=== PATIENT | female | born 1970 ===

== ENCOUNTER 2018-07-30 07:22 | Emergency (ER) | payer OTHER ==
[2018-07-30 07:36] VITALS: RESP 18; TEMP 98.7; O2SAT 99
[2018-07-30 08:58] VITALS: PULSE 110
--- NOTE | 2018-07-30 08:58 | ED PDOC ---
HPI: Psych/Substance Abuse Time Seen by Provider: 07/30/18 07:35 Chief Complaint (Nursing): Shortness Of Breath Chief Complaint (Provider): Anxiety History Per: Patient History/Exam Limitations: no limitations Onset/Duration Of Symptoms: Hrs (6:30am ) Current Symptoms Are (Timing): Better Associated Symptoms: denies: Suicidal Thoughts, Suicidal Plan Additional Complaint(s): 48 year old insulin-dependent diabetic female presents to the ED for an evaluation of anxiety attack. Patient reports she could not sleep at 4 am and when she was driving to work, she began to have a panic attack at 6:30am with shortness of breath. Patient pulled over when driving and was brought to the ED. Patient was seen at Urgent Care 2 weeks ago and diagnosed with anxiety and she is currently in the process of scheduling an appointment with a psychotherapist. Patient does not take any medication for anxiety and she denies SI/HI. Patient feels better in the ED. pt has no PE risk factors. PMD: Dr. Torres Past Medical History Reviewed: Historical Data, Nursing Documentation, Vital Signs Vital Signs: Last Vital Signs Temp 98.7 F 07/30/18 07:36 Pulse 107 H 07/30/18 07:36 Resp 18 07/30/18 07:36 BP 163/97 H 07/30/18 07:36 Pulse Ox 99 07/30/18 07:36 - Medical History PMH: Anxiety (DX 2 wks ago), Asthma (child), Diabetes - Surgical History Surgical History: No Surg Hx - Family History Family History: States: Unknown Family Hx - Social History Current smoker - smoking cessation education provided: No Alcohol: None Drugs: Cannabis - Allergies Allergies/Adverse Reactions: Allergies Allergy/AdvReac Type Severity Reaction Status Date / Time No Known Allergies Allergy Verified 07/30/18 07:43 Review of Systems ROS Statement: Except As Marked, All Systems Reviewed And Found Negative Constitutional: Negative for: Fever, Chills Cardiovascular: Negative for: Chest Pain, Palpitations, Orthopnea Respiratory: Positive for: Shortness of Breath (resolved). Negative for: Cough, SOB with Exertion, Pleuritic Pain, Wheezing Psych: Positive for: Anxiety. Negative for: Suicidal ideation, Other (homicidal ideation ) Physical Exam - Reviewed Nursing Documentation Reviewed: Yes Vital Signs Reviewed: Yes - Physical Exam Appears: Positive for: Well, Non-toxic, No Acute Distress Head Exam: Positive for: ATRAUMATIC, NORMAL INSPECTION, NORMOCEPHALIC Skin: Positive for: Normal Color, Warm, Dry. Negative for: Rash Eye Exam: Positive for: EOMI, Normal appearance, PERRL ENT: Positive for: Normal ENT Inspection Neck: Positive for: Normal, Painless ROM Cardiovascular/Chest: Positive for: Regular Rate, Rhythm. Negative for: Murmur Respiratory: Positive for: Normal Breath Sounds. Negative for: Decreased Breath Sounds, Respiratory Distress Gastrointestinal/Abdominal: Positive for: Normal Exam, Soft. Negative for: Tenderness Back: Positive for: Normal Inspection Extremity: Positive for: Normal ROM. Negative for: Tenderness, Pedal Edema, Deformity Neurologic/Psych: Positive for: Alert, Oriented (x3) - Laboratory Results Result Diagrams: 07/30/18 09:03 07/30/18 09:03 - ECG ECG: Positive for: Interpreted By Me, Viewed By Me ECG Rhythm: Positive for: Sinus Rhythm Interpretation Of ECG: bifascicular block Rate: 110 O2 Sat by Pulse Oximetry: 99 (RA) Pulse Ox Interpretation: Normal Medical Decision Making Medical Decision Making: Time: 728 Impression: Anxiety attack Plan: --EKG --CMP --Troponin --CBC w/ differential --Glucose --Normal saline 999 mls/hr --Reevaluation Patient declined crisis evaluation.states has her own outpatient plan. pt resting in bed in no distress. no chest pain or shortness of breath. Patient has elevated white count and elevated sugar. She refused a repeat of her troponin stating she is getting late and has to go. She will follow up with her PMD tomorrow and outpatient therapist as well. she is aware of high normal troponin and ekg, and need for cardiology follow up/ explained to her in depth the risks of leaving without complete cardiac workup in the ER. she understands but says if she stays in the ER too long she will have another panic attack. EKG: normal sinus rhythm, 110bps, bifascicular block Patient will be discharged home. Counseling was provided and all questions were answered regarding diagnosis and need for follow up with PMD. There is agreement to discharge plan. Return if symptoms persist or worsen. --------- -------- Scribe Attestation: Documented by Charla Sharpe, acting as a scribe for Mikey Rodriguez MD. Provider Scribe Attestation: All medical record entries made by the Scribe were at my direction and personally dictated by me. I have reviewed the chart and agree that the record accurately reflects my personal performance of the history, physical exam, medical decision making, and the department course for this patient. I have also personally directed, reviewed, and agree with the discharge instructions and disposition. Disposition - Clinical Impression Clinical Impression: Anxiety, Hyperglycemia, Dehydration - Patient ED Disposition Is Patient to be Admitted: No Counseled Patient/Family Regarding: Studies Performed, Diagnosis, Need For Followup - Disposition Disposition: Routine/Home Disposition Time: 15:11 Condition: IMPROVED Additional Instructions: follow up with your primary doctor TOMORROW and outpatient therapist as well return to the ED with any worsening or concerning symptoms Instructions: Anxiety, Adult (DC) Forms: [email or web address] ([place])
[2018-07-30 09:16] LABS: BASO # 0.1 K/uL (0.0-0.2); BASO % 0.5 % (0.0-2.0); EOS # 0.6 K/uL (0.0-0.7); EOS % 4.1 % (0.0-4.0); HEMOGLOBIN 12.3 g/dL (12.0-16.0); LYMPH # 2.1 K/uL (1.0-4.3); LYMPH % 14.4 % (20.0-40.0); MEAN CELL VOLUME 86.4 fl (81.0-99.0); MEAN CORPUSCULAR HEMOGLOBIN 28.3 pg (27.0-31.0); MEAN CORPUSCULAR HGB CONC 32.8 g/dL (33.0-37.0); MEAN PLATELET VOLUME 9.1 fl (7.2-11.7); MONO # 0.8 K/uL (0.0-0.8); MONO % 5.4 % (0.0-10.0); NEUT # 10.7 K/uL (1.8-7.0); NEUT % 75.6 % (50.0-75.0); NRBC % 0.1 % (0.0-0.0); RBC 4.35 Mil/uL (3.80-5.20); RED CELL DISTRIBUTION WIDTH 13.5 % (11.5-14.5); WHITE BLOOD COUNT 14.2 K/uL (4.8-10.8)
[2018-07-30 09:30] LABS: ALB/GLOB RATIO 1.2 (1.0-2.1); ALBUMIN 3.8 g/dL (3.5-5.0); CALCIUM 9.4 mg/dL (8.4-10.2)
[2018-07-30 09:41] LABS: TROPONIN I 0.063 ng/mL (0.00-0.120)
[2018-07-30] MEDS: Sodium Chloride 0.9% 1,000 ML IV STA (12:32)
[2018-07-30 15:59] VITALS: BP 149/87
--- NOTE | 2018-07-30 22:50 | CARD ---
APPROVED REPORT Date of service: 07/30/2018 EKG Measurement Heart [id number] <Conclusion> Sinus tachycardia Possible Left atrial enlargement Right bundle branch block Left posterior fascicular block Bifascicular block Abnormal ECG
== END 2018-07-30 15:19 | disposition home or self-care (01) ==
LOC: H.ER 07:22
DX: E86.0 Dehydration (principal); F41.0 Panic disorder [episodic paroxysmal anxiety]; E11.65 Type 2 diabetes mellitus with hyperglycemia; I45.10 Unspecified right bundle-branch block
CPT/HCPCS: 80053; 82948; 84484; 85025; 93005; 99284; J7030